=== PATIENT | female | born 1960 | race Caucasian/White ===

== ENCOUNTER → 2019-08-07 17:26 | Outpatient (CLI) | payer OTHER, SELFPAY ==
--- NOTE | ~2019-08-07 | MM_ITS ---
EXAMINATION: MM screening is[facility] BI w [place] HISTORY: Screening mammogram TECHNIQUE: Craniocaudal and mediolateral oblique 3-D tomosynthesis images were obtained and synthetic 2-D images were generated. CAD analysis was submitted and interpreted. COMPARISON: bilateral digital screening mammogram 04/05/2017 diagnostic right digital mammogram and limited right breast ultrasound 03/22/2017 bilateral digital screening mammogram BREAST PARENCHYMAL COMPOSITION: There are scattered areas of fibroglandular density. FINDINGS: Stable mild fibroglandular asymmetry. There is no evidence of suspicious mass, calcificatio n, or architectural distortion to suggest malignancy in either breast. There has been no suspicious i nterval change. IMPRESSION: 1. No mammographic evidence of malignancy. 2. Recommend routine screening mammography in one year. BI-RADS Category 2: Benign finding(s). Reviewed, dictated and finalized at location A. [employer] ASSISTANT
== END ==
PROVIDERS: Visit Provider Obstetrics & Gynecology
DX: Z12.31 Encounter for screening mammogram for malignant neoplasm of breast (principal)
CPT/HCPCS: 77063; 77067

== ENCOUNTER 2019-09-30 14:07 | Emergency (ER) | payer OTHER, SELFPAY ==
--- NOTE | ~2019-09-30 | CT_ITS ---
EXAMINATION: CT abdomen pelvis wo con DATE: 09/30/2019 15:30 INDICATION: Lower left abdominal pain for 8 hours. TECHNIQUE: Computed tomography (CT) of the abdomen and pelvis was performed without intravenous contr ast. Automated exposure control and iterative reconstruction technique were employed. Exam dose: 630 .51 mGy-cm total exam DLP. COMPARISON: 05/06/2017 CT abdomen pelvis with IV contrast material FINDINGS: The lung bases are clear of infiltrate or consolidation. Normal heart size. No pericardial or pleural effusion. The liver, gallbladder, bile ducts, spleen, pancreas, pancreatic duct, and adrenal glands are unremar kable. There is a 5 mm obstructing distal left ureteral calculus with proximal left hydroureteronephrosis, l eft perinephric stranding, mild left nephromegaly. No right renal or ureteral calculus or hydroureteronephrosis. The urinary bladder is unremarkable. Ut erus and adnexal areas are unremarkable. Normal caliber of the abdominal aorta. No intraperitoneal or retroperitoneal or pelvic mass lesion or adenopathy or ascites. There is diverticulosis of the left colon; no CT evidence of diverticulitis. No bowel obstruction or pneumatosis or intraperitoneal free air is evident. The appendix calcified, nonenlarged, without any associated inflammation. 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 No suspicious osteolytic or osteoblastic lesions are noted. IMPRESSION: 5 mm obstructing distal left renal calculus with moderate left hydroureteronephrosis, pe rinephric stranding Diverticulosis of the left colon; no CT evidence of diverticulitis Reviewed, dictated and finalized at Location [facility]. Reviewed, dictated and finalized at location A. IMPRESSION: 5 mm obstructing distal left renal calculus with moderate left hyd roureteronephrosis, perinephric stranding Diverticulosis of the left colon; no CT evidence of diverticulitis
[2019-09-30 15:02] VITALS: BP 159/84; PULSE 84; RESP 18; TEMP 37; O2SAT 100
[2019-09-30 15:28] LABS: Bilirubin Urine Negative (Negative); Blood Urine 3+ (Negative); Glucose Urine UA Negative (Negative); Ketones Urine Trace (Negative); Leukocyte Esterase Ur 2+ (Negative); Nitrate Urine Positive (Negative); Protein Urine Negative (Negative); Specific Grav Ur 1.015 (1.010-1.020); Urobilinogen Urine 0.2 mg/dL (0.2-1.0)
[2019-09-30] MEDS: SODIUM CHLORIDE 0.9% IV 1,000 ML 999 ML IV CONT (15:36)
[2019-09-30] MEDS: ONDANSETRON HCL ODT 4 MG TABLET PO (15:36)
[2019-09-30 15:45] LABS: Add Urine Microscopic? YES; Appearance Urine Cloudy (Clear); Bacteria Urine 2+ /hpf; Color Urine Light Yellow (Yellow); Squamous Epithelial Cell Urine Few /hpf (Few); WBC Urine 21-30 /hpf (0-3)
[2019-09-30 16:11] LABS: Hematocrit 42.1 % (35.0-49.0); Hemoglobin 13.9 g/dL (12.0-15.0); Mean Corpuscular Hemoglobin 29.5 pg (27.0-31.0); Mean Corpuscular Volume 89.4 fL (78.0-102.0); Mean Platelet Volume 11.3 fl (9.2-11.8); Platelet Count Result 194 K/mm3 (150-420); Red Blood Count 4.71 M/mm3 (4.20-5.40); White Blood Count 19.4 K/mm3 (4.8-10.8)
[2019-09-30 16:28] LABS: Alanine Aminotransferase 15 U/L (14-59); Albumin Level 3.6 g/dL (3.4-5.0); Alkaline Phosphatase 75 U/L (46-116); Anion Gap 15.9 mmol/L (7-16); Aspartate Amino Transferase 21 U/L (15-37); Bilirubin,Total 0.4 mg/dL (0.00-1.00); Blood Urea Nitrogen 19 mg/dL (7-18); Calcium 9.1 mg/dL (8.5-10.1); Carbon Dioxide 23 mmol/L (21-32); Chloride 104 mmol/L (98-108); Estimated CRCL calculation 45 ml/min; Estimated Glomerular Filt Rate 52; Glucose 101 mg/dL (70-99); Osmolality Calculated 290 mOsm/kg (285-295); Potassium 3.9 mmol/L (3.5-5.1); Sodium 139 mmol/L (136-145); Total Protein 7.2 g/dL (6.4-8.2)
--- NOTE | 2019-09-30 16:33 | ED.ABDPAIN ---
HPI - Abdominal Pain General Chief Complaint: Abdominal Pain Stated Complaint: left side pain Source: patient Mode of arrival: ambulatory Limitations: no limitations History of Present Illness HPI narrative: This is a 59-year-old female presents the emergency department with some left flank pain radiating into her left lower quadrant with dysuria, also hematuria. Patient has no known past medical history is currently on any medication, no history of nephrolithiasis. Currently there is no fever chills the patient does some complain of some mild nausea her pain prior to arrival was about a 7/10 currently she rates her pain about a 3/10. MD elicited complaint: abdominal pain and flank pain Pertinent past history: none Onset (ago): day(s) Pain Consistency: intermittent Location: LLQ and L flank Severity: mild Pain scale (0-10): 3 Quality: fullness and dull Radiation: LLQ Migration to: no migration Exacerbating factors: nothing Relieving factors: nothing Associated symptoms: nausea, dysuria and hematuria Treatments prior to arrival: NSAIDs Related Data Allergies Allergy/AdvReac Type Severity Reaction Status Date / Time No Known Allergies Allergy Unverified 05/06/17 11:29 Review of Systems Review of Systems: All systems reviewed & are unremarkable except as noted in HPI and below PMFSH Past Medical History Medical History Patient denies medical problems Family History Family History Father Family history of cardiovascular disease Social History Social History Smoking status: Never smoker Second hand tobacco smoke exposure: No Alcohol intake: current Exam Const: General: no acute distress and alert Orientation/consciousness: patient oriented x3 HENMT: Head: normal to inspection Eyes: Conjunctivae: conjunctivae normal Pupils: Equal, round and reactive pupils present Neck: Neck: normal visual inspection Chest: Chest palpation & inspection: normal inspection of the chest Resp: Effort & Inspection: normal respiratory effort Auscultation: clear to auscultation bilaterally Cardio: Rate: regular rate Rhythm: regular rhythm GI: GI Palp: Yes Soft to palpation and Yes Tenderness to palpation present (GI) : General: Yes CVA tenderness Urinary Catheter: Urinary Catheter: urine cloudy Back/Spine/Pelvis: Back: CVA tenderness Skin: General skin exam: normal color Rashes: no rashes Neuro: General: patient oriented x3, moves all extremities, no meningeal signs and no focal motor deficits Extrem: General: normal to inspection Psych: Mental Status: mental status grossly normal Course Vital Signs Vital signs: Vital Signs Temperature 37.0 C 09/30/19 15:02 Pulse Rate 84 09/30/19 15:02 Respiratory Rate 18 09/30/19 15:02 Blood Pressure 159/84 H 09/30/19 15:02 Pulse Oximetry 100 09/30/19 15:02 Temperature 37.0 C 09/30/19 15:02 Pulse Rate 84 09/30/19 15:02 Respiratory Rate 18 09/30/19 15:02 Blood Pressure 159/84 H 09/30/19 15:02 Pulse Oximetry 100 09/30/19 15:02 MDM - Abdominal Pain Lab Data Result diagrams: 09/30/19 15:50 09/30/19 15:50 Labs: Lab Results 09/30/19 09/30/19 09/30/19 Range/Units 15:21 15:50 15:50 WBC 19.4 H (4.8-10.8) K/mm3 RBC 4.71 (4.20-5.40) M/mm3 Hgb 13.9 (12.0-15.0) g/dL Hct 42.1 (35.0-49.0) % MCV 89.4 (78.0-102.0) fL MCH 29.5 (27.0-31.0) pg MCHC 33.0 (32.0-36.0) g/dL RDW 13.0 (11.6-14.4) % Plt Count 194 (150-420) K/mm3 MPV 11.3 (9.2-11.8) fl Sodium 139 (136-145) mmol/L Potassium 3.9 (3.5-5.1) mmol/L Chloride 104 (98-108) mmol/L Carbon Dioxide 23 (21-32) mmol/L Anion Gap 15.9 (7-16) mmol/L BUN 19 H (7-18) mg/dL Creatinine 1.08 H (0.55-1.02) mg/dL E
[2019-09-30 17:04] VITALS: BP 141/78; PULSE 80; RESP 16; O2SAT 100
== END 2019-09-30 17:04 | disposition home or self-care (01) ==
PROVIDERS: Emergency Provider Emergency Medicine
DX: N20.9 Urinary calculus, unspecified (principal); N20.1 Calculus of ureter; N39.0 Urinary tract infection, site not specified
CPT/HCPCS: 36415; 74176; 80053; 81001; 85027; 96360; 99283; 99284; A9270; J7030

== ENCOUNTER 2019-10-04 05:12 | Observation (INO) | payer OTHER, SELFPAY ==
[2019-10-04] VITALS (15 sets, daily range): BP systolic 89–134; BP diastolic 51–72; PULSE 71–98; RESP 10–16; TEMP 36.4–37.4; O2SAT 96–100; BMI 27.6
--- NOTE | ~2019-10-04 | XR_ITS ---
EXAMINATION: XR retrograde pyelo w/stent LT DATE: 10/04/2019 09:33 INDICATION: Left ureteral stone extraction and stent placement TECHNIQUE: Fluoroscopic images from a left internal ureteral stent placement are submitted for review . 57 seconds of fluoroscopy time. 36 images. FINDINGS: There is a left double-J internal ureteral stent projecting in expected position, with proximal [place] loop at the level of the renal pelvis and distal loop in the pelvis within the bladder lumen. IMPRESSION: 1. Left internal ureteral stent placement. Please refer to real-time procedural findings for detail s. Reviewed, dictated and finalized at location A. IMPRESSION: 1. Left internal ureteral stent placement. Please refer to real-time procedur al findings for details.
--- NOTE | ~2019-10-04 | XR_ITS ---
EXAMINATION: XR abdomen/kub 1V DATE: 10/04/2019 05:53 INDICATION: Left ureteral stone. TECHNIQUE: A supine view of the abdomen on 2 radiographs was obtained. COMPARISON: CT abdomen and pelvis 09/30/2019 FINDINGS: There are no dilated loops of bowel. There is a 5 mm stone at left ureterovesicular junctio n. There are phleboliths in the pelvis. IMPRESSION: 1. 5 mm stone at left ureterovesicular junction. Reviewed, dictated and finalized at location A.
--- NOTE | 2019-10-04 05:21 | ED.ABDPAIN ---
HPI - Abdominal Pain General Chief Complaint: Abdominal Pain <Juan Foley MD - Last Filed: 10/04/19 20:07> Stated Complaint: blood in urine <Juan Foley MD - Last Filed: 10/04/19 20:07> Time Seen by Provider: 10/04/19 05:17 <Juan Foley MD - Last Filed: 10/04/19 20:07> History of Present Illness HPI narrative: 59 yo female w/ h/o htn, recently diagnosed kidney stone presents c/o flank pain and hematuria. SHe was seen at [facility] on 09/29 and found to have a 5 mm stone in the distal left ureter. Additionally she was told that she had a UTI. She was started on Macrobid, flomax, and tramadol. She reports that her symptoms have not improved since that time. Her pain is moderately controlled with tramadol. She has had very little appetite. last night she noted that she began having rust colored urine. No fever. On review of the chart She had a WBC count of 19. Her urine was nitrate positive. CT showed 5 mm stone in distal left ureter and stranding around the left Kidney. This makes me concerned about the possibility of pyelonephritis behind an obstructing stone. <Juan Foley MD - Last Filed: 10/04/19 20:07> Related Data Allergies/Adverse Reactions: Allergies Allergy/AdvReac Type Severity Reaction Status Date / Time No Known Allergies Allergy Unverified 10/04/19 05:18 <Juan Foley MD - Last Filed: 10/04/19 20:07> Review of Systems Review of Systems: All systems reviewed & are unremarkable except as noted in HPI and below <Juan Foley MD - Last Filed: 10/04/19 20:07> Constitutional: Constitutional: Denies fever(s) <Juan Foley MD - Last Filed: 10/04/19 20:07> ENT: Reports dizziness <Juan Foley MD - Last Filed: 10/04/19 20:07> Cardiovascular: Cardiovascular: Denies chest pain <Juan Foley MD - Last Filed: 10/04/19 20:07> Respiratory: Respiratory: Denies dyspnea <Juan Foley MD - Last Filed: 10/04/19 20:07> Gastrointestinal: Gastrointestinal: Reports abdominal pain, Reports constipation and Reports nausea <Juan Foley MD - Last Filed: 10/04/19 20:07> Genitourinary: Genitourinary: Reports hematuria and Denies dysuria <Juan Foley MD - Last Filed: 10/04/19 20:07> PMFSH Past Medical History Medical History: Medical History HTN (hypertension) Patient denies medical problems <Juan Foley MD - Last Filed: 10/04/19 20:07> Family History Family History: Family History Father Family history of cardiovascular disease <Juan Foley MD - Last Filed: 10/04/19 20:07> Social History Social History: Social History Smoking status: Never smoker Second hand tobacco smoke exposure: No Alcohol intake: current Drinks per week: 1 Substance use: never Spiritual care concerns: No Agree to blood products: Yes <Juan Foley MD - Last Filed: 10/04/19 20:07> Exam Const: General: no acute distress and alert <Juan Foley MD - Last Filed: 10/04/19 20:07> Nutritional Appearance: well nourished <Juan Foley MD - Last Filed: 10/04/19 20:07> Orientation/consciousness: patient oriented x3 <Juan Foley MD - Last Filed: 10/04/19 20:07> HENMT: Head: normal to inspection <Juan Foley MD - Last Filed: 10/04/19 20:07> Resp: Effort & Inspection: normal respiratory effort <Juan Foley MD - Last Filed: 10/04/19 20:07> Auscultation: clear to auscultation bilaterally <Juan Foley MD - Last Filed: 10/04/19 20:07> Cardio: Rate: regular rate <Juan Foley MD - Last Filed: 10/04/19 20:07> Rhythm: regular rhythm <Juan Foley MD - Last Filed: 10/04/19 20:07> GI: GI Palp: Yes Soft to palpation and No Tenderness to palpation present (GI) <G
[2019-10-04] MEDS: SODIUM CHLORIDE 0.9% IV 1,000 ML 999 ML IV CONT (05:34)
[2019-10-04 05:36] LABS: Basophils Percent Auto 0.2 % (0.2-1.2); Eosinophils Percent Auto 0.2 % (0-4.4); Hematocrit 38.1 % (37.0-47.0); Hemoglobin 12.8 g/dL (12.0-15.0); Immature Granulocyte Absolute 0.13 K/mm3 (0.00-0.031); Immature Granulocyte Percent A 0.7 % (0-0.5); Immature Platelet Fraction Pct 7.4 % (0.9-11.2); Lymphocytes Absolute Auto 0.72 K/mm3 (0.9-3.2); Lymphocytes Percent Auto 3.9 % (18.3-44.2); Mean Corpuscular HGB Conc 33.6 g/dl (32-36); Mean Corpuscular Hemoglobin 29.2 pg (26-34); Mean Platelet Volume 11.5 fl (7.4-10.4); Monocytes Absolute Auto 1.8 K/mm3 (0.1-0.6); Neutrophils Absolute Auto 15.6 K/mm3 (1.3-6.7); Platelet Count Result 104 k/mm3 (150-375); Red Blood Count 4.38 M/mm3 (4.2-5.4); Red Cell Distribution Width 13.5 % (11.5-14.5); White Blood Count 18.3 K/mm3 (4.5-10.0)
[2019-10-04 05:42] LABS: Alanine Aminotransferase 14 U/L (4-35); Albumin Level 3.4 g/dL (3.5-5.1); Alkaline Phosphatase 135 U/L (38-126); Aspartate Amino Transferase 19 U/L (14-36); Bilirubin,Total 0.6 mg/dL (0.2-1.3); Blood Urea Nitrogen 15 mg/dL (7-17); Calcium 8.7 mg/dL (8.4-10.2); Carbon Dioxide 25 mmol/L (22-30); Chloride 97 mmol/L (98-107); Estimated Glomerular Filt Rate 50; Glucose 125 mg/dL (65-105); Potassium 3.2 mmol/L (3.4-5.0); Sodium 132 mmol/L (137-145)
[2019-10-04 05:46] LABS: Prothrombin Time 12.8 Seconds (11.1-14.7)
[2019-10-04 05:47] LABS: Partial Thromboplastin Time 29.4 SECONDS (22.3-36.8)
[2019-10-04 05:55] LABS: Add Urine Microscopic? YES; Appearance Urine Turbid (Clear); Bacteria Urine Trace /hpf; Bilirubin Urine Negative (Negative); Blood Urine 3+ (Negative); Color Urine Amber (Yellow); Glucose Urine UA Negative (Negative); Ketones Urine 1+ mg/dL (Negative); Leukocyte Esterase Ur 3+ LEU/UL (Negative); Nitrate Urine Negative (Negative); Protein Urine 2+ mg/dL (Negative); RBC Urine >75 /hpf (0-2); Specific Grav Ur 1.011 (1.001-1.035); Squamous Epithelial Cell Urine Few /hpf (Few); Urobilinogen Urine Negative mg/dL (<2.0); WBC Clumps Urine Present /HPF; WBC Urine >75 /hpf
[2019-10-04 06:58] LABS: Lactic Acid Reflex 1.1 mmol/L (0.7-2.1)
--- NOTE | 2019-10-04 08:18 | ECG_ITS ---
Measurements Intervals [place] Rate: 82 P: 67 MT: 165 QRS: 37 QRSD: 90 T: 40 QT: 364 QTc: 427 Interpretive Statements SINUS RHYTHM VENTRICULAR PREMATURE COMPLEX BASELINE ARTIFACT- V2 BORDERLINE ECG Electronically Signed On 10-04-2019 8:41:45 CDT by Polo Mansfield D.O.
--- NOTE | 2019-10-04 08:21 | WPDANESEPPF ---
Anes - Initial Pre Proc Eval Procedure: Operation Date: 10/04/19 09:00 Proposed Procedures p Cystoscopy, Left Ureteroscopy, Stone Extraction, Possible Left Ureteral Stent Placement(Left) - Garland Loja MD Date/Time: 10/04/19 08:21 Surgeon: Riki Jason MD Pre Op Diagnosis: sepsis,uti,left kidney stone Patient Data Age: 59 Gender: F Height: Weight: 77.7 kg Last Vital Signs Temp 37.4 C 10/04/19 06:31 Pulse 97 10/04/19 07:37 Resp 16 10/04/19 07:37 BP 130/66 10/04/19 07:37 Pulse Ox 98 10/04/19 07:37 Allergies Allergy/AdvReac Type Severity Reaction Status Date / Time No Known Allergies Allergy Unverified 10/04/19 05:18 Home Medications Medication Instructions Recorded Confirmed Type amlodipine [Norvasc] 5 mg PO DAILY #7 tablet 09/30/19 Rx nitrofurantoin monohyd/m-cryst 100 mg PO Q12H 7 Days #14 cap 09/30/19 Rx [Macrobid] tamsulosin [Flomax] 0.4 mg PO DAILY #7 cap 09/30/19 Rx tramadol [Ultram] 50 mg PO Q6H PRN #20 tablet 09/30/19 Rx Laboratory Tests 10/04/19 10/04/19 10/04/19 05:25 05:25 05:25 WBC 18.3 K/mm3 H K/mm3 (4.5-10.0) RBC 4.38 M/mm3 M/mm3 (4.2-5.4) Hgb 12.8 g/dL g/dL (12.0-15.0) Hct 38.1 % % (37.0-47.0) MCV 87.0 fl fl (80-100) MCH 29.2 pg pg (26-34) MCHC 33.6 g/dl g/dl (32-36) RDW 13.5 % % (11.5-14.5) Plt Count 104 k/mm3 L k/mm3 (150-375) MPV 11.5 fl H fl (7.4-10.4) Immature Gran % (Auto) 0.7 % H % (0-0.5) Neut % (Auto) 85.0 % H % (45.5-73.1) Lymph % (Auto) 3.9 % L % (18.3-44.2) [place] % (Auto) 10.0 % H % (2.6-8.5) Eos % (Auto) 0.2 % % (0-4.4) Baso % (Auto) 0.2 % % (0.2-1.2) Lymph # (Auto) 0.72 K/mm3 L K/mm3 (0.9-3.2) [place] # (Auto) 1.8 K/mm3 H K/mm3 (0.1-0.6) Eos # (Auto) 0.0 K/mm3 K/mm3 (0-0.3) Baso # (Auto) 0.0 K/mm3 K/mm3 (0.0-0.1) Abs Immat Gran (auto) 0.13 K/mm3 H K/mm3 (0.00-0.031) Absolute Neuts (auto) 15.6 K/mm3 H K/mm3 (1.3-6.7) Absolute Nucleated RBC 0.0 K/mm3 K/mm3 (0.0-0.012) Nucleated RBC % 0.0 % % (0.0-0.2) % Immature Plt Fraction 7.4 % % (0.9-11.2) PT 12.8 Seconds Seconds (11.1-14.7) INR 1.0 APTT 29.4 SECONDS SECONDS (22.3-36.8) Sodium 132 mmol/L L mmol/L (137-145) Potassium 3.2 mmol/L L mmol/L (3.4-5.0) Chloride 97 mmol/L L mmol/L (98-107) Carbon Dioxide 25 mmol/L mmol/L (22-30) BUN 15 mg/dL mg/dL (7-17) Creatinine 1.10 mg/dL H mg/dL (0.7-1.0) Estim Creat Clear Calc Not Reportable Estimated GFR 50 L (59 - ) Glucose 125 mg/dL H mg/dL (65-105) Lactic Acid Calcium 8.7 mg/dL mg/dL (8.4-10.2) Total Bilirubin 0.6 mg/dL mg/dL (0.2-1.3) AST 19 U/L U/L (14-36) ALT 14 U/L U/L (4-35) Alkaline Phosphatase 135 U/L H U/L (38-126) Total Protein 7.0 g/dL g/dL (6.3-8.2) Albumin 3.4 g/dL L g/dL (3.5-5.1) Urine Color Urine Appearance Urine pH Ur Specific [place] Urine Protein Urine Glucose (UA) Urine Ketones Ur Blood (Man) Urine Nitrate Urine Bilirubin Urine Urobilinogen Leukocyte Esterase Rfl Urine RBC Urine WBC Urine WBC Clumps Ur Squamous Epith Cells Urine Bacteria 10/04/19 10/04/19 05:36 06:27 WBC RBC Hgb Hct MCV MCH MCHC RDW Plt Count MPV Immature Gran % (Auto) Neut % (Auto) Lymph % (Auto)
--- NOTE | 2019-10-04 08:23 | WPDURCON ---
Assessment and Plan Assessment and plan (1) Left ureteral stone: Code(s): N20.1 - Calculus of ureter Status: Acute (2) Obstructive pyelonephritis: Code(s): N11.1 - Chronic obstructive pyelonephritis Status: Acute Assessment and Plan: Cysto/left ureteroscopy with stone extraction and stent placement. Admit for IV Ceftriaxone pending cultures. Urology Consult Note HPI Date Seen: 10/04/19 Requesting Physician: Riki Jason MD Primary Care Provider: UNKNOWN,DOCTOR Consult Narrative Narrative: Osmel Mullins is a 59 year old female withou prior history of known urolithiasis until last Tuesday when presented to ER in [place] with 5mm left proximal ureteral stone and UTI. Was discharge on Nitrofurantion. Now presents with ongoing flank pain without fever but persistent pyuria. She denies gross hematuria. Review of Systems Constitutional: Constitutional: Denies chills, Denies fatigue, Denies fever(s) and Denies headache(s) Eyes: Eyes: Denies blurry vision ENT: Denies vertigo, Denies dizziness, Denies headache(s) and Denies sore throat Cardiovascular: Cardiovascular: Denies chest pain, Denies syncope, Denies lightheadedness, Denies palpitations, Denies dyspnea and Denies dyspnea on exertion Respiratory: Respiratory: Denies hemoptysis, Denies dyspnea and Denies dyspnea on exertion Gastrointestinal: Gastrointestinal: Reports abdominal pain, Denies melena, Denies bloating, Denies hematochezia, Denies change in bowel habits, Denies change in stool character, Denies constipation, Denies diarrhea and Denies vomiting Genitourinary: Genitourinary: Denies hematuria, Denies urinary frequency, Denies dysuria, Denies urinary hesitancy and Denies urinary urgency Integumentary/Breasts: Skin/Breast: Denies pruritus, Denies lesions and Denies rash Neurologic: Denies confusion, Denies vertigo, Denies dizziness, Denies syncope and Denies headache(s) Psychiatric: Psychiatric: Denies anxiety, Denies change in appetite and Denies confusion Endocrine: Endocrine: Denies fatigue and Denies palpitations PMFSH Past Medical History Medical History HTN (hypertension) Patient denies medical problems Family History Family History Father Family history of cardiovascular disease Social History Social History Smoking status: Never smoker Second hand tobacco smoke exposure: No Alcohol intake: current Meds Home Medications and Allergies Home Medications Medication Instructions Recorded Confirmed Type amlodipine [Norvasc] 5 mg PO DAILY #7 tablet 09/30/19 10/04/19 Rx nitrofurantoin monohyd/m-cryst 100 mg PO Q12H 7 Days #14 cap 09/30/19 10/04/19 Rx [Macrobid] tamsulosin [Flomax] 0.4 mg PO DAILY #7 cap 09/30/19 10/04/19 Rx tramadol [Ultram] 50 mg PO Q6H PRN #20 tablet 09/30/19 10/04/19 Rx Allergies Allergy/AdvReac Type Severity Reaction Status Date / Time No Known Allergies Allergy Unverified 10/04/19 05:18 Vital Signs Vital Signs - 24 hr 10/04/19 05:14 10/04/19 06:13 10/04/19 06:31 Temperature 98.8 F 99.4 F Pulse Rate 97 98 Respiratory Rate 15 15 Blood Pressure 134/72 125/64 Pulse Oximetry 100 99 10/04/19 07:37 Temperature Pulse Rate 97 Respiratory Rate 16 Blood Pressure 130/66 Pulse Oximetry 98 Exam Const: General: healthy appearing, comfortable, no acute distress and well developed; No confusion Nutritional Appearance: well nourished Orientation/consciousness: patient oriented x3 and No confusion HENMT: Head: normocephalic and atraumatic Ears: external ears normal Face and sinus: normal facial exam Mouth: Yes lip normal Teeth and gingiva: dentition normal Eyes: General: appearance normal, both eyes and all related structures Alignment and Position: alignment normal Eyelids
[2019-10-04] MEDS: LACTATED RINGERS 1,000 ML 30 ML IV CONT (08:39)
[2019-10-04] MEDS: KETOROLAC 30 MG/ML VIAL (*BKC) IM (09:29)
--- NOTE | 2019-10-04 09:32 | SUR.OPER ---
EBL:0cc
--- NOTE | 2019-10-04 09:33 | P.OP_ITS ---
Procedure Note - Detailed Date of procedure: 10/04/19 Pre-op diagnosis: sepsis,uti,left kidney stone Post-op diagnosis: same Procedure performed: 1. Cystoscopy, left retrograde pyelogram. 2. Left ureteroscopy with extraction stone/clot. 3. Left ureteral stent placement. Description of procedure: The patient was brought to the operative suite where she is prepped and draped in a routine sterile fashion while in the dorsal lithotomy position after the uneventful induction of a general LMA anesthetic. A 19F rigid cystoscope was placed in the bladder. The patient had no evidence of urethral stricture or bladder neck contracture. The bladder mucosa was endoscopically normal without hyperemia or neoplasm. There was a single, orthotopic ureteral orifice bilaterally. A 0.035 glidewire was advanced into the left renal pelvis under fluoroscopy. The distal ureter was dilated with an 8F/10F ureteral dilator. Ureteroscopy was undertaken with a short tapered semi- rigid ureteroscope. With ureteroscopy I saw marked left distal ureteral edema and a clot with possible small stone fragments in it - was able to extract the clot/stone using a 1.9F Escape, disposable stone basket. I then did a retrograde pyelogram on the left followed by the left flexible ureteroscopy to ensure that there were no additional, more proximal stones. There was no identifiable additional stones or other pathology.Due to the extent of this ma nipulation I did place a 4.8F double-J ureteral stent. The proximal coil of the stent was confirmed to be in the renal pelvis and the distal coil in the bladder. The patient's bladder was emptied and she was taken to the recovery room having tolerated this procedur. Anesthesia: GLMA Surgeon: Garland Loja MD Estimated blood loss (mL): 0 Drains: Yes (4.8F left ureteral stent) Packing: No Pathology: yes Complications: No immediate complications Condition: stable Disposition: PACU
--- NOTE | 2019-10-04 10:28 | SUR.PHASEI ---
1015 AT BEDSIDE TO SEE PT/UPDATE GIVEN ON ADMISSION 1028 SBAR FAXED FLOOR NOTIFIED
--- NOTE | 2019-10-04 10:45 | ADMGEN ---
This patient, Osmel Mullins, was admitted to 3 Medical Room 348-01. Patient arrived to unit per stretcher from OR. Report received from YESI Maddox. Patient/family oriented to hospital policies and general routines including ID bracelet, bed and alarms, visiting hours, pain management, procedures, bathroom and other care routines, personal items, smoking policy, room service/diet, and visiting hours. Valuables list has been completed. Information on how to activate the Rapid Response Team has been discussed. Patient/Family are encouraged to report perceived risks to care and to ask questions if they do not understand what they are told or what they should do.
[2019-10-04] MEDS: SODIUM CHLORIDE 0.9% IV 1,000 ML 125 ML IV CONT ×2 (12:08→19:36)
--- NOTE | 2019-10-04 16:28 | PM.IMHP ---
H&P: HPI History of Present Illness Chief complaint: sepsis,uti,left kidney stone Narrative: Osmel Mullins is a 59 year old female with past medical history of hypertension seen initially presented at [facility] was found to about 5 mm kidney stone and UTI patient was started on oral Macrobid, Flomax and tramadol and discharged however patient presented with a worsening symptoms and repeat CT abdomen showed 5 mm stone in distal ureter patient was seen by urologist and was taken to the urology lab and cystoscopy and removal of the stone, patient started on Rocephin for antibiotic, patient states is feeling much better after the procedure denies any abdominal pain nausea or vomiting fever or chills. Review of Systems Review of Systems: All systems reviewed & are unremarkable except as noted in HPI and below PMFSH Past Medical History Medical History HTN (hypertension) Patient denies medical problems Family History Family History Father Family history of cardiovascular disease Social History Social History Smoking status: Never smoker Second hand tobacco smoke exposure: No Alcohol intake: current Drinks per week: 1 Substance use: never Spiritual care concerns: No Agree to blood products: Yes Meds Home Medications and Allergies Home Medications Medication Instructions Recorded Confirmed Type amlodipine [Norvasc] 5 mg PO DAILY #7 tablet 09/30/19 10/04/19 Rx nitrofurantoin monohyd/m-cryst 100 mg PO Q12H 7 Days #14 cap 09/30/19 10/04/19 Rx [Macrobid] tamsulosin [Flomax] 0.4 mg PO DAILY #7 cap 09/30/19 10/04/19 Rx tramadol [Ultram] 50 mg PO Q6H PRN #20 tablet 09/30/19 10/04/19 Rx Allergies Allergy/AdvReac Type Severity Reaction Status Date / Time No Known Allergies Allergy Unverified 10/04/19 05:18 Vital Signs Vital Signs - 24 hr 10/04/19 05:14 10/04/19 06:13 10/04/19 06:31 Temperature 98.8 F 99.4 F Pulse Rate 97 98 Respiratory Rate 15 15 Blood Pressure 134/72 125/64 Pulse Oximetry 100 99 10/04/19 07:37 10/04/19 08:30 10/04/19 09:40 Temperature 98.1 F 97.6 F Pulse Rate 97 83 87 Respiratory Rate 16 14 12 Blood Pressure 130/66 113/63 89/57 L Pulse Oximetry 98 99 97 10/04/19 09:55 10/04/19 10:10 10/04/19 10:24 Temperature Pulse Rate 85 88 78 Respiratory Rate 12 10 L 12 Blood Pressure 99/55 L 106/60 109/62 Pulse Oximetry 99 96 96 10/04/19 11:15 10/04/19 12:00 10/04/19 13:01 Temperature 98 F 98.3 F 98.5 F Pulse Rate 72 87 86 Respiratory Rate 14 14 16 Blood Pressure 116/53 L 110/64 112/66 Pulse Oximetry 100 100 97 10/04/19 14:24 Temperature 97.8 F Pulse Rate 71 Respiratory Rate 12 Blood Pressure 103/61 Pulse Oximetry 97 Exam Const: General: comfortable and no acute distress HENMT: General nose exam: Normal nares present Mouth: Yes moist mucous membranes Eyes: Sclera: sclerae normal Neck: Neck: supple Resp: Effort & Inspection: normal respiratory effort Auscultation: clear to auscultation bilaterally Cardio: Rate: regular rate Rhythm: regular rhythm GI: GI Palp: Yes Soft to palpation Other: Diffusely tender Skin: General skin exam: normal color Neuro: Speech: normal speech Sensory Exam: normal sensation Extrem: General: normal to inspection Psych: Affect: Anxious affect present H&P: Results Labs Labs: Short CBC 10/04/19 Range/Units 05:25 WBC 18.3 H (4.5-10.0) K/mm3 Hgb 12.8 (12.0-15.0) g/dL Hct 38.1 (37.0-47.0) % Plt Count 104 L (150-375) k/mm3 BMP 10/04/19 05:25 Sodium 132 L Potassium 3.2 L Chloride 97 L Carbon Dioxide 25 BUN 15 Creatinine 1.10 H Glucose 125 H Calcium 8.7 Liver Function 10/04/19 Range/Units 05:25 Total Bilirubin 0.6 (0.2-1.3) mg/dL AST 19 (14-36) U/L ALT 14 (4
[2019-10-05] VITALS (7 sets, daily range): BP systolic 117–139; BP diastolic 56–67; PULSE 63–84; RESP 14–18; TEMP 36.3–37.6; O2SAT 99–100
[2019-10-05] MEDS: SODIUM CHLORIDE 0.9% IV 1,000 ML 125 ML IV CONT (03:39)
[2019-10-05 05:13] LABS: Basophils Absolute Auto 0.1 K/mm3 (0.0-0.1); Basophils Percent Auto 0.3 % (0.2-1.2); Hematocrit 34.7 % (37.0-47.0); Hemoglobin 11.4 g/dL (12.0-15.0); Immature Granulocyte Absolute 0.49 K/mm3 (0.00-0.031); Immature Granulocyte Percent A 2.6 % (0-0.5); Lymphocytes Absolute Auto 0.73 K/mm3 (0.9-3.2); Lymphocytes Percent Auto 3.9 % (18.3-44.2); Mean Corpuscular HGB Conc 32.9 g/dl (32-36); Mean Corpuscular Hemoglobin 28.7 pg (26-34); Mean Corpuscular Volume 87.4 fl (80-100); Mean Platelet Volume 11.8 fl (7.4-10.4); Monocytes Absolute Auto 1.8 K/mm3 (0.1-0.6); Monocytes Percent Auto 9.5 % (2.6-8.5); Neutrophils Absolute Auto 15.5 K/mm3 (1.3-6.7); Neutrophils Percent Auto 83.7 % (45.5-73.1); Platelet Count Result 114 k/mm3 (150-375); Red Blood Count 3.97 M/mm3 (4.2-5.4); White Blood Count 18.5 K/mm3 (4.5-10.0)
[2019-10-05 05:33] LABS: Alanine Aminotransferase 50 U/L (4-35); Albumin Level 2.9 g/dL (3.5-5.1); Alkaline Phosphatase 227 U/L (38-126); Aspartate Amino Transferase 59 U/L (14-36); Bilirubin,Total 0.4 mg/dL (0.2-1.3); Blood Urea Nitrogen 13 mg/dL (7-17); Calcium 8.2 mg/dL (8.4-10.2); Carbon Dioxide 26 mmol/L (22-30); Chloride 108 mmol/L (98-107); Estimated CRCL calculation 61 ml/min; Estimated Glomerular Filt Rate > 60; Glucose 139 mg/dL (65-105); Potassium 4.1 mmol/L (3.4-5.0); Sodium 137 mmol/L (137-145)
--- NOTE | 2019-10-05 07:52 | WPDUROPN2 ---
Progress Note: A&P Assessment and Plan (1) Obstructive pyelonephritis: Code(s): N11.1 - Chronic obstructive pyelonephritis Status: Acute (2) Left ureteral stone: Code(s): N20.1 - Calculus of ureter Status: Acute Assessment and Plan: Although this patient continues to have a significant leukocytosis, the fact that she is afebrile and comfortable is encouraging. With an indwelling stent she is protected from significant regression in her urinary tract symptoms. under ordinary circumstances I would encourage her to stay another day or 2 until her leukocytosis his more completely resolved. During the current environment, however, I would be comfortable with her going home on oral quinolone with the understanding that she needs to contact us were she to developed fever. Subjective Subjective Date/Time Seen: 10/05/19 07:52 Comfortable, tolerating stent. Review of Systems Cardiovascular: Cardiovascular: Denies chest pain, Denies lightheadedness, Denies palpitations and Denies dyspnea Respiratory: Respiratory: Denies dyspnea Gastrointestinal: Gastrointestinal: Denies diarrhea, Denies nausea and Denies vomiting Genitourinary: Genitourinary: Denies hematuria and Denies dysuria Endocrine: Endocrine: Denies palpitations Exam Const: General: no acute distress Resp: Effort & Inspection: normal respiratory effort GI: Inspection: non-distended GI Palp: No abdominal tenderness and No Guarding due to palpation present (GI) Auscultation: normal bowel sounds Objective Data Vital Signs Vital Signs: Vital Signs - 24 hr 10/04/19 08:30 10/04/19 09:40 10/04/19 09:55 Temperature 98.1 F 97.6 F Pulse Rate 83 87 85 Respiratory Rate 14 12 12 Blood Pressure 113/63 89/57 L 99/55 L Pulse Oximetry 99 97 99 10/04/19 10:10 10/04/19 10:24 10/04/19 11:15 Temperature 98 F Pulse Rate 88 78 72 Respiratory Rate 10 L 12 14 Blood Pressure 106/60 109/62 116/53 L Pulse Oximetry 96 96 100 10/04/19 12:00 10/04/19 13:01 10/04/19 14:24 Temperature 98.3 F 98.5 F 97.8 F Pulse Rate 87 86 71 Respiratory Rate 14 16 12 Blood Pressure 110/64 112/66 103/61 Pulse Oximetry 100 97 97 10/04/19 17:59 04/30/20 20:40 10/05/19 00:38 Temperature 98.3 F 99.4 F 98.9 F Pulse Rate 72 76 63 Respiratory Rate 12 16 16 Blood Pressure 107/51 L 117/57 L 123/64 Pulse Oximetry 97 98 99 10/05/19 04:18 Temperature 98.3 F Pulse Rate 68 Respiratory Rate 14 Blood Pressure 128/67 Pulse Oximetry 99 Intake/Output Intake/Output: Intake & Output 10/02/19 10/03/19 10/04/19 10/05/19 23:59 23:59 23:59 23:59 Intake Total 3530 1950 Output Total 850 1300 Balance 2680 650 Meds/Results Medications: Active Medications Generic Name Dose Route Start Last Admin Trade Name Freq PRN Reason Stop Dose Admin Fentanyl Citrate 25 mcg 10/04/19 08:23 Sublimaze IV PUSH Q2M PRN Pain Sodium Chloride 1,000 mls @ 125 mls/hr 10/04/19 07:15 10/05/19 03:39 Normal Saline Iv IV CONT 125 mls/hr .Q8H JESUS ALBERTO Administration Ceftriaxone Sodium/Dextrose 1 gm in 50 mls @ 100 mls/hr 10/05/19 06:00 10/05/19 06:45 Rocephin 1 Gm/D5w 50 Ml IVPB Infused Q24H JESUS ALBERTO Infusion Morphine Sulfate 4 mg 10/04/19 07:15 Morphine Sulfate Inj IV PUSH Q4HR PRN Pain Rated 7-10 Ondansetron HCl 4 mg 10/04/19 07:15 Zofran Inj IV PUSH Q4H PRN Nausea Ondansetron HCl 4 mg 10/04/19 08:23 Zofran Inj IV PUSH ONCE PRN Nausea Oxycodone HCl 5 mg 10/04/19 08:23 Roxicodone Ir Tablet PO ONCE PRN Pain Radiology Results: ITS Impressions Abdomen X-Ray 10/04/19 07:01 IMPRESSION: 1. 5 mm stone at left ureterovesicular junction. Retrograde Pyelogram 10/04/19 15:05 IMPRESSION: 1. Left internal ureteral stent placement. Please refer to real-time procedural findings for details. Labs Labs: Laboratory Results - last 24 hr
[2019-10-05 10:04] LABS: Basophils Absolute Auto 0.1 K/mm3 (0.0-0.1); Basophils Percent Auto 0.5 % (0.2-1.2); Hematocrit 36.4 % (37.0-47.0); Immature Granulocyte Absolute 0.83 K/mm3 (0.00-0.031); Immature Granulocyte Percent A 4.1 % (0-0.5); Immature Platelet Fraction Pct 5.6 % (0.9-11.2); Lymphocytes Absolute Auto 0.95 K/mm3 (0.9-3.2); Lymphocytes Percent Auto 4.7 % (18.3-44.2); Mean Corpuscular Hemoglobin 29.3 pg (26-34); Mean Corpuscular Volume 88.8 fl (80-100); Mean Platelet Volume 11.8 fl (7.4-10.4); Monocytes Absolute Auto 1.4 K/mm3 (0.1-0.6); Monocytes Percent Auto 6.9 % (2.6-8.5); Neutrophils Absolute Auto 16.7 K/mm3 (1.3-6.7); Neutrophils Percent Auto 83.8 % (45.5-73.1); Platelet Count Result 138 k/mm3 (150-375); Red Cell Distribution Width 14.3 % (11.5-14.5)
[2019-10-05 10:13] LABS: Blood Urea Nitrogen 13 mg/dL (7-17); Calcium 8.2 mg/dL (8.4-10.2); Carbon Dioxide 26 mmol/L (22-30); Chloride 108 mmol/L (98-107); Estimated CRCL calculation 61 ml/min; Estimated Glomerular Filt Rate > 60; Glucose 160 mg/dL (65-105); Potassium 3.6 mmol/L (3.4-5.0); Sodium 137 mmol/L (137-145)
--- NOTE | 2019-10-05 11:11 | PM.DS ---
DS: Diagnosis Admitting Diagnosis Admitting Diagnosis: Calculus of ureter Discharge Diagnosis (1) Left ureteral stone: Code(s): N20.1 - Calculus of ureter Status: Acute (2) Obstructive pyelonephritis: Code(s): N11.1 - Chronic obstructive pyelonephritis Status: Acute (3) Acute UTI: Code(s): N39.0 - Urinary tract infection, site not specified Status: Acute (4) Thrombocytopenia: Code(s): D69.6 - Thrombocytopenia, unspecified Status: Acute Assessment and Plan: Most likely related to infection will continue to monitor. (5) HTN (hypertension): Code(s): I10 - Essential (primary) hypertension Status: Acute (6) Constipation: Code(s): K59.00 - Constipation, unspecified Status: Acute (7) Elevated LFTs: Code(s): R79.89 - Other specified abnormal findings of blood chemistry Status: Acute DS: Summary Hospital Course Reason for hospitalization: Osmel Mullins is a 59 year old female with past medical history of hypertension seen initially presented to [place] [facility] 09/30/2019 was found to about 5 mm kidney stone and UTI patient was started on oral Macrobid, Flomax and tramadol and discharged however patient presented with a worsening symptoms and came back to the ER 10/04/2019. Repeat CT abdomen showed 5 mm stone in distal ureter and the patient was admitted and seen by urologist and had a cystoscopy, left retrograde pyelogram, left ureteroscopy with extraction of stone and placement of left ureteral stent placement. The patient was admitted into the hospital overnight on IV Rocephin for antibiotic. Today the patients pain is resolved, no fevers, chills, urinary symptoms. Dr. Loja evaluated the patient today after her procedure yesterday and feels she is stable for discharge to follow up in the office and to call the office if she has worsening symptoms, fever or other issues. The patient still has leukocytosis which was stable from arrival. Her Urine Culture showed growth of E. coli. Dr. Loja recommended a Quinalone antibiotic upon discharge. She is feeling well, appears stable, vitals are normal since procedure. She can be discharged home on Levaquin for 7 days. Follow up with [facility]. Blood cultures show no growth at this time x2. Will monitor final results. She also had slight elevation to LFTs, which improved slightly today. She denies any abdominal pain, nausea with eating or RUQ pain. Will repeat CMP in 1 week and have her follow up with her primary care provider. She also had thrombopenia which resolved today. Leukocytosis improving with antibiotics. She had a bowel movement last night. Told to continue PRN MiraLax or Colace at home. The patient understands and agrees with the plan. All questions answered. Status at Discharge Cognitive/behavioral status at discharge: Stable, improved. Time Spent with Patient Time attestation: Total time spent providing and/or coordinating discharge services: Time spent: Greater than 30 minutes Exam Narrative: Exam Narrative: General: 59-year-old woman laying flat in bed watching TV. Appears comfortable. In no acute distress. Skin: No jaundice or cyanosis. Good skin turgor. Neck: Full range of motion. Supple. Respiratory: Lungs are clear to auscultation bilaterally. No wheezing, rales or rhonchi. No bony chest wall tenderness. Cardiovascular: The heart has a regular rate and rhythm without murmur. Lower extremities: No lower extremity edema. Distal pulses are easily palpated. No calf tenderness to palpation. Gastrointestinal: The abdomen is soft, nontender and nondistended with active bowel sounds. No CVA tenderness. Psychiatric: Lucid and oriented. Memory intact. Neurologic: No focal deficits. Speech is clear. No facial drooping. DS: Data Data Completed and Pending Completed studies during hospitalization: Pending at discharge 09/06
[2019-10-05] MEDS: DOCUSATE SODIUM 100 MG CAPSULE PO ×2 (11:21→22:11)
[2019-10-05] MEDS: polyethylene glycoL 3350 17 GM POWD.PACK PO (11:21)
--- NOTE | 2019-10-05 11:52 | PM.IMPN ---
Progress Note: A&P Assessment and Plan (1) Sepsis: Code(s): A41.9 - Sepsis, unspecified organism Status: Acute Assessment and Plan: She met criteria for sepsis on arrival with hypotension, leukocytosis, in the setting of a urinary tract infection most likely secondary to left renal stone. Patient's vital signs otherwise been normal since admission. Leukocytosis is still elevated we are still monitoring her. Continue IV antibiotics. (2) Leukocytosis: Code(s): D72.829 - Elevated white blood cell count, unspecified Status: Acute Assessment and Plan: Patient's leukocytosis on arrival was 18,000. This morning was again 18,000 in then labs were checked again at 9:30 a.m. which showed leukocytosis at 20,000. Her neutrophil count went from 85% down to 83%. Her vitals are otherwise stable and remains afebrile, non tachycardic. Blood cultures are still pending and will not be available until later this evening. Urine culture showed growth of E coli, pending sensitivities. Due to the patient's leukocytosis I would like to keep her again overnight for further monitoring, IV antibiotics and if blood cultures show no growth and we have the sensitivities of the urine culture I would feel comfortable with her discharge at that time. (3) Acute UTI: Code(s): N39.0 - Urinary tract infection, site not specified Status: Acute Assessment and Plan: Urine culture growing E coli. She is on IV ceftriaxone but it was recommended by Urology to place her on a quinolone. I will start IV Levaquin at this time and pending sensitivity results tomorrow. (4) Left ureteral stone: Code(s): N20.1 - Calculus of ureter Status: Acute Assessment and Plan: Patient with a 5 mm left kidney stone since 09/28 She was discharged from [facility] on oral medications without any improvement of her symptoms. She was taken to the OR by Dr. Loja and had a cysto, stone extraction, stent placement. Today she is feeling much better without any pain, fevers, chills or concerns. Continue monitoring symptoms. (5) Obstructive pyelonephritis: Code(s): N11.1 - Chronic obstructive pyelonephritis Status: Acute Assessment and Plan: Patient is urinating without any issues. Obstruction has resolved with stone extraction. (6) Thrombocytopenia: Code(s): D69.6 - Thrombocytopenia, unspecified Status: Acute Assessment and Plan: Most likely related to infection will continue to monitor. Will recheck her level in the morning. (7) HTN (hypertension): Code(s): I10 - Essential (primary) hypertension Status: Acute Assessment and Plan: Blood pressure has remained normal. (8) Constipation: Code(s): K59.00 - Constipation, unspecified Status: Acute Assessment and Plan: She will be given MiraLax and Colace to see if there is any improvement. Continue monitoring (9) Elevated LFTs: Code(s): R79.89 - Other specified abnormal findings of blood chemistry Status: Acute Assessment and Plan: Slight elevation to her LFTs today. She denies any right upper quadrant pain, nausea, pain with eating. Will continue monitoring LFTs in the morning. Time Spent With Patient Time with patient: 25 - 35 minutes Subjective Date/time seen: 10/05/19 11:52 Interval history: Date of service 10/05/2019: Patient is feeling much better after her procedure yesterday to remove her kidney stone. She denies any flank pain. She does have some left
[2019-10-05] MEDS: MORPHINE SULFATE 4 MG/ML INJ IV PUSH (22:10)
[2019-10-06 05:27] VITALS: BP 151/66; PULSE 75; RESP 16; TEMP 36.9; O2SAT 100
--- NOTE | 2019-10-06 05:36 | PC.NURSE ---
BM was small
[2019-10-06 09:23] LABS: Basophils Absolute Auto 0.1 K/mm3 (0.0-0.1); Basophils Percent Auto 0.7 % (0.2-1.2); Eosinophils Percent Auto 0.2 % (0-4.4); Hematocrit 36.4 % (37.0-47.0); Immature Granulocyte Absolute 1.12 K/mm3 (0.00-0.031); Immature Granulocyte Percent A 7.8 % (0-0.5); Lymphocytes Absolute Auto 1.53 K/mm3 (0.9-3.2); Lymphocytes Percent Auto 10.7 % (18.3-44.2); Mean Corpuscular Volume 87.9 fl (80-100); Mean Platelet Volume 10.6 fl (7.4-10.4); Monocytes Absolute Auto 1.2 K/mm3 (0.1-0.6); Monocytes Percent Auto 8.5 % (2.6-8.5); Neutrophils Absolute Auto 10.3 K/mm3 (1.3-6.7); Neutrophils Percent Auto 72.1 % (45.5-73.1); Platelet Count Result 172 k/mm3 (150-375); Red Blood Count 4.14 M/mm3 (4.2-5.4); Red Cell Distribution Width 14.4 % (11.5-14.5); White Blood Count 14.3 K/mm3 (4.5-10.0)
[2019-10-06 09:34] LABS: Alanine Aminotransferase 51 U/L (4-35); Albumin Level 3.1 g/dL (3.5-5.1); Alkaline Phosphatase 203 U/L (38-126); Aspartate Amino Transferase 38 U/L (14-36); Bilirubin,Total 0.6 mg/dL (0.2-1.3); Blood Urea Nitrogen 11 mg/dL (7-17); Calcium 8.4 mg/dL (8.4-10.2); Carbon Dioxide 25 mmol/L (22-30); Chloride 106 mmol/L (98-107); Estimated CRCL calculation 61 ml/min; Estimated Glomerular Filt Rate > 60; Glucose 133 mg/dL (65-105); Magnesium 1.8 mg/dL (1.6-2.3); Potassium 3.2 mmol/L (3.4-5.0); Sodium 140 mmol/L (137-145)
[2019-10-06] MEDS: POTASSIUM CHLORIDE 20 MEQ TABLET 40 MEQ PO (10:19)
--- NOTE | 2019-10-12 08:47 | PC.NURSE ---
Blood cx are negative.
== END 2019-10-06 12:37 | disposition home or self-care (01) ==
LOC: ANHED 07:18 → ANH3MED 07:31
PROVIDERS: Emergency Medicine; Urology; Admitting Provider Family Medicine; Emergency Provider Emergency Medicine; Visit Provider Physician Assistant
PROC: (CPT 52352; principal; 2019-10-04 09:00)
DX: A41.9 Sepsis, unspecified organism (principal); N20.1 Calculus of ureter; N11.1 Chronic obstructive pyelonephritis; N39.0 Urinary tract infection, site not specified; B96.20 Unspecified Escherichia coli [E. coli] as the cause of diseases classified elsewhere; D69.6 Thrombocytopenia, unspecified; I10 Essential (primary) hypertension; K59.00 Constipation, unspecified; R79.89 Other specified abnormal findings of blood chemistry; Z79.899 Other long term (current) drug therapy
CPT/HCPCS: 52352; 52332; 36415; 74018; 74420; 80048; 80053; 81001; 82365; 83605; 83735; 85025; 85055; 85610; 85730; 87040; 87077; 87086; 87088; 87186; 88300; 93005; 96361; 96365; 96367; 96372; 96375; 99285; A9270; C1758; C1769; C2617; G0378; J0131; J0696; J1100; J1885; J1956; J2250; J2270; J2405; J2704; J3010; J7030; J7120; Q9966

== ENCOUNTER 2019-10-12 09:58 | Outpatient (CLI) | payer OTHER, SELFPAY ==
[2019-10-12 10:48] LABS: Alanine Aminotransferase 30 U/L (4-35); Albumin Level 3.9 g/dL (3.5-5.1); Alkaline Phosphatase 119 U/L (38-126); Aspartate Amino Transferase 22 U/L (14-36); Bilirubin,Total 0.4 mg/dL (0.2-1.3); Blood Urea Nitrogen 14 mg/dL (7-17); Calcium 9.1 mg/dL (8.4-10.2); Carbon Dioxide 26 mmol/L (22-30); Chloride 105 mmol/L (98-107); Estimated Glomerular Filt Rate > 60; Glucose 90 mg/dL (65-105); Potassium 3.6 mmol/L (3.4-5.0); Sodium 139 mmol/L (137-145)
== END 2019-10-12 09:59 | disposition home or self-care (01) ==
PROVIDERS: PCP Family Medicine; Visit Provider Physician Assistant
DX: R94.5 Abnormal results of liver function studies (principal)
CPT/HCPCS: 36415; 80053

== ENCOUNTER → 2020-05-22 12:49 | Outpatient (CLI) | payer OTHER, SELFPAY ==
--- NOTE | ~2020-05-22 | XR_ITS ---
XR abdomen/kub 1V 05/22/2020 13:10 INDICATION: Left ureteral stone TECHNIQUE: KUB COMPARISON: 10/04/2019 FINDINGS: Bowel gas pattern is normal. There is no evidence of free air, mass, organomegaly, ascites or obstruction. No abnormal calculi are seen. The bones appear intact. Moderate lumbar spondylosis . IMPRESSION: 1: No acute abdominal abnormality identified. Reviewed, dictated and finalized at location A. HT FOLLOWER
== END ==
PROVIDERS: PCP Family Medicine; Visit Provider Urology
DX: N20.1 Calculus of ureter (principal)
CPT/HCPCS: 74018

== ENCOUNTER → 2020-10-02 17:29 | Outpatient (CLI) | payer OTHER, SELFPAY ==
--- NOTE | ~2020-10-02 | MM_ITS ---
EXAMINATION: MM screening isabel BI w zelalem HISTORY: Screening mammogram TECHNIQUE: Craniocaudal and mediolateral oblique 3-D tomosynthesis images were obtained and synthetic 2-D images were generated. CAD analysis was submitted and interpreted. COMPARISON: , 06/07/2018 bilateral digital screening mammogram examinations right diagnostic digital mammogram and limited right breast ultrasound 03/22/2017 bilateral digital screening mammogram 03/19/2016 diagnostic left digital mammogram and complete left breast ultrasound 03/04/2016 bilateral digital screening mammogram BREAST PARENCHYMAL COMPOSITION: There are scattered areas of fibroglandular density. FINDINGS: Stable fibroglandular asymmetry. There is no evidence of suspicious mass, calcification, or architectural distortion to suggest malignancy in either breast. There has been no suspicious interv al change. IMPRESSION: 1. No mammographic evidence of malignancy. 2. Recommend routine screening mammography in one year. BI-RADS Category 2: Benign finding(s). Reviewed, dictated and finalized at location A.
== END ==
PROVIDERS: Visit Provider Obstetrics & Gynecology
DX: Z12.31 Encounter for screening mammogram for malignant neoplasm of breast (principal)
CPT/HCPCS: 77063; 77067

== ENCOUNTER → 2021-11-24 12:42 | Outpatient (CLI) | payer BC, SELFPAY ==
--- NOTE | ~2021-11-24 | MM_ITS ---
EXAMINATION: MM screening isabel BI w zelalem HISTORY: Screening mammogram TECHNIQUE: Craniocaudal and mediolateral oblique 3-D tomosynthesis images were obtained and synthetic 2-D images were generated. CAD analysis was submitted and interpreted. COMPARISON: 10/02/2020, 08/07/2019, 06/07/2018 bilateral screening mammogram examinations..... BREAST PARENCHYMAL COMPOSITION: There are scattered areas of fibroglandular density. FINDINGS: Stable mild fibroglandular asymmetry. There is no evidence of suspicious mass, calcificatio n, or architectural distortion to suggest malignancy in either breast. There has been no suspicious i nterval change. IMPRESSION: 1. No mammographic evidence of malignancy. 2. Recommend routine screening mammography in one year. BI-RADS Category 2: Benign finding(s). Reviewed, dictated and finalized at location A.
== END ==
PROVIDERS: PCP Family Medicine; Visit Provider Obstetrics & Gynecology
DX: Z12.31 Encounter for screening mammogram for malignant neoplasm of breast (principal)
CPT/HCPCS: 77063; 77067

== ENCOUNTER → 2023-01-20 11:01 | Outpatient (CLI) | payer OTHER, SELFPAY ==
--- NOTE | ~2023-01-20 | MM_ITS ---
EXAMINATION: MM screening isabel BI w zelalem HISTORY: Screening TECHNIQUE: Craniocaudal and mediolateral oblique 3-D tomosynthesis images were obtained and synthetic 2-D images were generated. CAD analysis was submitted and interpreted. COMPARISON: Comparison to multiple prior studies sequentially, with oldest reviewed study dated 03/22/2017. BREAST PARENCHYMAL COMPOSITION: There are scattered areas of fibroglandular density. FINDINGS: There is a new mass in the medial aspect of the left breast, middle depth. The right breast is stable without evidence for malignancy. IMPRESSION: 1. New 4 mm left breast mass, medially. 2. Additional mammographic views and possible breast ultrasound are recommended. BI-RADS Category 0: Incomplete: Needs additional imaging evaluation. Reviewed, dictated and finalized at location A. IMPRESSION: 1. New 4 mm left breast mass, medially. 2. Additional mammographic views and possible breast ultrasound are recommended . BI-RADS Category 0: Incomplete: Needs additional imaging evaluation.
== END ==
PROVIDERS: PCP Family Medicine; Visit Provider Obstetrics & Gynecology
DX: Z12.31 Encounter for screening mammogram for malignant neoplasm of breast (principal); R92.8 Other abnormal and inconclusive findings on diagnostic imaging of breast
CPT/HCPCS: 77063; 77067

== ENCOUNTER → 2023-02-17 08:17 | Outpatient (CLI) | payer OTHER, SELFPAY ==
--- NOTE | ~2023-02-17 | MMUS_ITS ---
EXAMINATION: MM diagnostic isabel LT w zelalem, US breast LT limited HISTORY: New 4 mm left breast mass reported in inner breast on 01/20/2023 screening mammogram TECHNIQUE: Additional 3-D tomosynthesis images of the left breast were performed and synthetic 2-D im ages were generated. CAD analysis was submitted and interpreted. High resolution upper inner quadrant left breast ultrasound was performed. COMPARISON: 01/20/2023 screening mammogram FINDINGS: MAMMOGRAPHIC FINDINGS: A 3.4 x 4.5 mm circumscribed low-density opacity is noted in the upper inner quadrant at mid depth, b enign in appearance mammographically. ULTRASOUND: 10:00 4 cm from nipple: Parallel circumscribed sonolucency measuring 2.7 x 4.6 x 4.4 mm, without inte rnal vascularity, with through transmission and posterior enhancement, consistent with simple cyst IMPRESSION: 1. Benign 4.6 mm simple cyst at 10:00 4 cm from nipple 2. Routine annual mammographic screening is recommended BI-RADS Category 2: Benign finding(s). Reviewed, dictated and finalized at location A. IMPRESSION: 1. Benign 4.6 mm simple cyst at 10:00 4 cm from nipple 2. Routine annual mammographic screening is recommended BI-RADS Category 2: Benign finding(s).
== END ==
PROVIDERS: PCP Family Medicine; Visit Provider Obstetrics & Gynecology
DX: N63.0 Unspecified lump in unspecified breast (principal); N63.20 Unspecified lump in the left breast, unspecified quadrant; N60.02 Solitary cyst of left breast
CPT/HCPCS: 76642; 77061; 77065; G0279

== ENCOUNTER 2024-02-20 11:57 | Outpatient (CLI) | payer MEDICARE, SELFPAY ==
--- NOTE | ~2024-02-20 | DEXA_ITS ---
Bone Density Report Name: YUE OBREGON Age: 63 Sex: Female Ethnicity: White Date of : 1960 Indication: postmenopausal; screening for osteoporosis; height loss; Referring Provider: GERARD STOCK Study: Bone densitometry was performed. Exam Date: February 20, 2024 Accession number: [id number] Bone Density: Region BMD T-score Z-score Classification AP Spine(L1-L4) 1.166 1.1 2.9 Normal Femoral Neck (Left) 0.770 -0.7 0.8 Normal Total Hip (Left) 0.954 0.1 1.4 Normal Femoral Neck (Right) 0.808 -0.4 1.2 Normal Total Hip (Right) 0.937 0.0 1.2 Normal Femoral Neck Mean 0.789 -0.5 1.0 Normal Total Hip Mean 0.946 0.0 1.3 Normal World Health Organization criteria for BMD impression classify patients as: Normal (T-score at or above -1.0), Osteopenia (T-score between -1.0 and -2.5), or Osteoporosis (T-score at or below -2.5). 10-year Fracture Risk: FRAX not reported because: All T-scores for Spine Total, Hip Total, Femoral Neck at or above -1.0 Clinical Information Provided by Patient: Has used the following medications: Vitamin D Patient maximum height was 67.5 Menopause Age: 56 No regular weight bearing exercise Drinks caffeinated beverages Onset of menses at age 11 Number of children 3 Impression: The patient has normal bone mass. Discussion: BONE DENSITY IS ABOVE THE MINIMUM DESIRABLE LEVEL AT ALL SKELETAL SITES TESTED. This patient?s bone mineral density is above the minimum desirable level (T-score -1.0 or better) at all sites measured. The patient should follow a healthful lifestyle (good nutrition with adequate calcium and vitamin D, and appropriate weight-bearing exercise). Follow-Up: Consider repeating this study in 5 years or sooner if there is some new clinical indication. Reported by: TIMOTHY on 02/20/2024 12:32:00 PM. Reviewed, dictated and finalized at location [facility]
--- NOTE | ~2024-02-20 | MM_ITS ---
EXAMINATION: MM screening [facility] BI w zelalem HISTORY: Screening mammogram TECHNIQUE: Craniocaudal and mediolateral oblique 3-D tomosynthesis images were obtained and synthetic 2-D images were generated. CAD analysis was submitted and interpreted. COMPARISON: 01/20/2023, 11/24/2021, 10/02/2020 BREAST PARENCHYMAL COMPOSITION:Not Dense. There are scattered areas of fibroglandular density. FINDINGS: Stable small left breast mass, shown previously to be a simple cyst. No suspicious mass, ca lcification, or architectural distortion are identified in either breast to suggest malignancy. There has been no suspicious interval change. IMPRESSION: No mammographic evidence of malignancy. Recommend routine screening mammography in one year. BI-RADS Category 2: Benign finding(s). Reviewed, dictated and finalized at [facility].
== END 2024-02-20 11:58 | disposition home or self-care (01) ==
LOC: CHSIMG 12:00
PROVIDERS: PCP Family Medicine; Visit Provider Obstetrics & Gynecology
DX: Z12.31 Encounter for screening mammogram for malignant neoplasm of breast (principal); Z78.0 Asymptomatic menopausal state
CPT/HCPCS: 77063; 77067; 77080

== ENCOUNTER 2025-02-07 07:55 | Outpatient (CLI) | payer MEDICARE, SELFPAY ==
--- OUTSIDE RECORDS SUMMARY | 2025-02-07 08:02 | XMS_ITS | Clinical Summary ---
Author Organization [facility] Address [address] [place] [address] Phone Care Team Providers Care Industrial Tech Instructor Name Role Phone Betsy Davila MD Primary Care Provider [phone] Allergies No known active allergies Medications Multiple Vitamin (MULTIVITAMIN PO) Take by mouth daily. Active Active Problems No known active problems Family History Medical History Relation Name Comments High Cholesterol Father Hypertension Father Other-comment Father CARDIAC BYPASS Cancer Mother SKIN Osteoarthritis Mother Relation Name Status Comments Father Alive Mother Alive Social History Tobacco Use Types Packs/Day Years Used Date Smoking Tobacco: Never Smokeless Tobacco: Never Alcohol Use Standard Drinks/Week Comments Yes 0 (1 standard drink = 0.6 oz pur e alcohol) RARELY Comments Unknown Sex and Gender Information Value Date Recorded Sex Assigned at Not on file Legal Sex Female 12:33 PM CDT Gender Identity Not on file Sexual Orientation Not on file Last Filed Vital Signs Vital Sign Reading Time Taken Comments Blood Pressure 130/77 03/28/2023 11:19 AM CDT Pulse 77 03/28/2023 11:19 AM CDT Temperature 36.5 C (97.7 F) 03/28/2023 11:19 AM CDT Respiratory Rate 15 03/28/2023 11:19 AM CDT Oxygen Saturation 97% 03/28/2023 11:19 AM CDT Inhaled Oxygen Concentration - - Weight 77.1 kg (170 lb) 03/18/2023 9:33 AM CDT Height 170.2 cm (5' 7) 03/18/2023 9:33 AM CDT Body Mass Index 26.63 03/18/2023 9:33 AM CDT Plan of Treatment Health Maintenance Due Date Last Done Comments DEXA Bone Density 1960 Hepatitis C Virus (HCV) Screening 1960 Mammogram 1960 Cologuard 2003 Colonoscopy 2003 Colorectal Cancer Screening 2003 Immunochemical Fecal Occult Blood 2003 Pneumococcal Immunization (50+ years) (1 of 1 - PCV) 2008 Zoster Immunization (1 of 2) 2008 SARS-COV-2 Immunization ( - season) 2024 04/19/2022, 12/18/2021, 06/11/2021, Additional history exists Influenza Immunization (#1) 2025 04/22/2022, 0 06/11/2021 Respiratory Syncytial Virus (RSV) Immunization (Adult) (1 - 1-dose 75+ series) 2033 DTaP/Tdap/Td Immunization Discontinued 12/31/2016, 01/1999 TdaP Immunization Completed 12/31/2016 Hepatitis B Immunization Aged Out No longer eligible based on patient's age to complete this topic Human Papillomavirus (HPV) Immunization Aged Out No longer eligible based on patient's age to complete this topic Meningococcal Immunization (ACWY) Aged Out No longer eligible based on patient's age to complete this topic Rotavirus Immunization Aged Out No lo nger eligible based on patient's age to complete this topic Medical Devices Implanted Type Area Transferrer Device Identifier Shelf Expiration Date Model / Serial / Lot Left Lens Implanted:Qty: 1 on 02/28/2023 by Prince Nava MD at [facility] Left: Eye [employer] 09/15/2024 DCB0 0 / DCB00 / [id number] Right Lens Implanted:Qty: 1 on 03/28/2023 by Prince Nava MD at [facility] Right: Eye [employer] 02/06/2025 DIB00 / DIB00 / [id number] Insurance [employer] Care Teams Industrial Tech Instructor Relationship Specialty Start Date End Date Betsy Davila MD [address] [place] [address] PCP - General Family Medicine 02/28/23
[2025-02-07 09:15] LABS: Hematocrit 43.6 % (37.0-47.0); Hemoglobin 13.9 g/dL (12.0-15.0); Mean Corpuscular HGB Conc 31.9 g/dl (32-36); Mean Corpuscular Hemoglobin 28.7 pg (26-34); Mean Corpuscular Volume 90.1 fl (80-100); Platelet Count Result 228 k/mm3 (150-375); Red Blood Count 4.84 M/mm3 (4.2-5.4); White Blood Count 7.9 K/mm3 (4.5-10.0)
== END 2025-02-07 07:56 | disposition home or self-care (01) ==
PROVIDERS: PCP Family Medicine; Visit Provider Obstetrics & Gynecology
DX: N95.0 Postmenopausal bleeding (principal)
CPT/HCPCS: 36415; 85027

== ENCOUNTER 2025-02-14 00:48 | Day surgery (SDC) | payer MEDICARE, SELFPAY ==
[2025-02-05 08:27] VITALS: BMI 28.3
--- NOTE | 2025-02-05 08:43 | PC.NURSE ---
Report to the Outpatient Waiting Room, entrance under the green pavilion located off [facility], at time ___7:30AM__ on date __02/14/25___. Planned Procedure Time: ___9:30AM___.? Time changes happen often and if your time is changed the preop area will call you the afternoon before. - You and your visitor will be asked to self-screen and do not enter if you have any COVID symptoms. Please call surgeon if you need to reschedule. - A mask is optional within the hospital at this time. Patients may have clear liquids (water, carbonated beverages, clear teas, apple juice) until 3 hours prior to surgery (6:30AM) with a maximum of 20 ounces. - No food from midnight until time of surgery and no smoking, or chewing tobacco (or any form of nicotine). No chewing gum, candy or mints. Take only the following medications with a SIP of water on the morning of surgery: ____NONE DO NOT STOP ANY OF YOUR OTHER PRESCRIPTION MEDICATIONS PRIOR TO SURGERY EXCEPT THE FOLLOWING Hold all vitamins and supplements for 3 days per anesthesiologist.-LAST DOSE 02/10/25 Medications to discontinue per physician NONE Date to take last dose Please no make-up, nail pashto, hairspray, perfume, deodorant, or body powder the day of surgery.? No jewelry (including any body piercings) or valuables the day of surgery, leave them at home.? Please take a shower or bath the night before, or the morning of, surgery with an antibacterial soap.? Wear comfortable, loose fitting clothing.? - Jewelry must be removed prior to entering the operating room.? Rings and piercings that are not removed may be cut off. - The hospital will not accept responsibility for valuables.? - Please leave all valuables, including medications, at home the day of surgery. If you are going home after surgery, a licensed racing driver must drive you home.? - NO public transportation without another adult if you receive anesthesia. - We recommend that an adult stay with you for 24 hours following discharge. - We also recommend that you do not drive, make important decision, drink alcoholic beverages, or take any drugs that were not prescribed by your health care provider for at least 24 hours after your discharge time. Follow any additional instructions given to you from your surgeon. Telephone instructions given to ___PATIENT and asked if any additional questions and then verbalized understanding. Patient advised to call surgeon office or pre surgery nurse liaison [phone] if any additional questions.
--- OUTSIDE RECORDS SUMMARY | 2025-02-14 00:50 | XMS_ITS | Clinical Summary ---
Author Organization [facility] Address [address] [place] [address] Phone Care Team Providers Care Sharepoint Analyst Name Role Phone Betsy Davila MD Primary Care Provider [phone] Allergies No known active allergies Medications Multiple [...] this topic Medical Devices Implanted Type Area Emergency Planner Device Identifier Shelf Expiration Date Model / Serial / Lot Left Lens Implanted:Qty: 1 on 02/28/2023 by Prince Nava MD at [facility] Left: Eye [employer] 09/15/2024 DCB0 0 / DCB00 / [id number] Right Lens Implanted:Qty: 1 on 03/28/2023 by Prince Nava MD at [facility] Right: Eye [employer] 02/06/2025 DIB00 / DIB00 / [id number] Insurance [employer] Care Teams Sharepoint Analyst Relationship Specialty Start Date End Date Betsy Davila MD [address] [place] [address] PCP - General Family Medicine 02/28/23
--- NOTE | 2025-02-14 06:04 | WPDHPUPDATE1 ---
History and Physical Update Update Date/Time: 02/14/25 06:04 History and Physical has been reviewed, including an updated exam of the patient. There are NO changes in the patient's condition. Risks, benefits, and alternatives have been discussed and questions answered. Patient agrees to proceed with procedure.
[2025-02-14 06:10] VITALS: BP 143/87; PULSE 73; RESP 18; TEMP 36.3; O2SAT 99
[2025-02-14] MEDS: ACETAMINOPHEN 500 MG TABLET 1000 MG PO (06:25)
[2025-02-14] MEDS: LACTATED RINGERS 1,000 ML 30 ML IV CONT (06:30)
--- NOTE | 2025-02-14 06:52 | WPDANESEPPF ---
Anes - Initial Pre Proc Eval Procedure: Operation Date: 02/14/25 07:30 Proposed Procedures p Hysteroscopy Dilation and Curettage - Maynor Rod MD Date/Time: 02/14/25 06:52 Surgeon: Maynor Rod MD Pre Op Diagnosis: post menopausal bleeding Patient Data Age: 64 Gender: F Height: 1.69 m Weight: 81 kg Allergies Allergy/AdvReac Type Severity Reaction Status Date / Time No Known Allergies Allergy Verified 02/05/25 08:25 Home Medications ?Medication ?Instructions ?Recorded ?Confirmed ?Type rosuvastatin 5 mg tablet 5 mg PO DAILY #30 tabs 12/25/24 02/14/25 Rx cholecalciferol (vitamin D3) 50 50 mcg PO DAILY 01/23/25 02/14/25 History mcg (2,000 unit) capsule Patient hx anesthesia problems: none Family hx anesthesia problems: none Results Review: All pre-operative results and documents have been reviewed as part of the pre-operative evaluation. [facility] Past Medical History Medical History (Updated 01/23/25 @ 10:50 by ALEX Adams) Hyperlipidemia Prediabetes Screening mammogram, encounter for Abnormal Pap smear of cervix 02/03/16 ascus neg hpv Kidney stone HTN (hypertension) Patient denies medical problems Surgical History Surgical History History of appendectomy (~04/2017) History of lithotripsy (09/05/19) History of dilation and curettage (04/21/17) hscope d&c/polypectomy--PMB, endometrial hypertrophy, endometrial polyps benign History of colposcopy with cervical biopsy (01/31/03) benign History of cholecystectomy Family History Family History Father Family history of cardiovascular disease Hypertension Social History Social History Smoking status: Never smoker Second hand tobacco smoke exposure: No Alcohol intake: current Drinks per week: 2 Substance use: never Substance use type: does not use Do You Feel Safe in your Home?: Yes Lack of Transportation: No Lack of Food: Never True Current Housing: I Have Housing Concerned About Future Housing: No Difficulty Paying Gas/Electric Bills: No Difficulty Paying for Meds: No Currently Unemployed: No Education: Bachelor's Degree Difficulty w/ Childcare or Family Care: No Living arrangements: with family Additional living arrangements comments: [place] Occupation/Education: retired Gender identity (if verbalized by the patient): Female Sexual Orientation (if Verbalized by the Patient): Straight or Heterosexual Spiritual care concerns: No Agree to blood products: Yes Anes - Eval Final PreProcedure Day of Procedure 02/14/25 06:52 Patient weight: overweight Heart: regular rate and rhythm Lungs: clear to auscultation Airway: Mallampati scale class II Neurological: alert and oriented Last oral intake: >/= 8 hours ASA classification: II Emergent: no Anesthetic plan: proceed Anesthesia type and monitoring: general GIVS and standard monitoring Results Review: All pre-operative results and documents have been reviewed as part of the pre-operative evaluation. Informed Consent: The patient's anesthetic plan and its attendant risks and benefits were discussed with the patient/family/POA. Questions were solicited and answers provided to the satisfaction of the patient/family/POA.
--- NOTE | 2025-02-14 07:42 | S_PTH ---
PATIENT: Osmel Mullins LOC: [facility] U#:[id number] AGE/SX: 64/F ROOM: RE02/14/[address]: Maynor Rod MD : 1960 BED: DIS: 02/14/2025 SPEC #: [id number] RECD: 02/14/25 10:33 STATUS: AUDREY REQ #: [id number] YVROSE: 02/14/25 07:[address]: Maynor Rod DEPT: [facility] Surgical RECD BY: Daniela John ENTERED: 02/14/25 10:33 SP TYPE: Surgical OTHR DR: Betsy DavilaMD Tissues: A - Endometrial Curettings Procedures: Hematoxylin and Eosin Stain Gross and Microscopic Level 4
[2025-02-14] MEDS: KETOROLAC 30 MG/ML VIAL (*BKC) IV PUSH (07:43)
--- NOTE | 2025-02-14 07:48 | W.PM.PROC2 ---
Procedure Note - Detailed Date of Procedure 02/14/25 Pre-op Diagnosis 1. Post menopausal bleeding Post-op Diagnosis Same (2. endometrial polyp) Procedure Performed 1. Hysteroscopy 2. Polypectomy with uterine curettings Surgeon Maynor Rod MD Anesthesia MAC Findings Endometrial cavity with multiple small polyps Description of Procedure Patient prepped draped usual manner this procedure. Cervix was dilated to allow hysteroscope to be placed. Findings were noted as above. Curettings were then obtained of polyp and all of quadrants of endometrial tissue thorough sample obtained. There was no bleeding and at this point the procedure was considered terminated. Estimated Blood Loss 10 Drains No Packing No Pathology Yes Complications No immediate complications Condition Stable Disposition PACU [facility] Billing Surgery - Charge Forward: Surgery Billing
[2025-02-14 07:53] VITALS: BP 89/47; PULSE 70; RESP 12; O2SAT 94
[2025-02-14 08:20] VITALS: BP 126/67; PULSE 58; RESP 20
[2025-02-14 08:50] VITALS: BP 114/56; PULSE 59; RESP 20
== END 2025-02-14 09:00 | disposition home or self-care (01) ==
PROVIDERS: PCP Family Medicine; Visit Provider Obstetrics & Gynecology
PROC: 0U5B8ZZ Destruction of Endometrium, Via Natural or Artificial Opening Endoscopic (ICD-10-PCS; CPT 58563; principal; 2025-02-14 07:30)
DX: N84.0 Polyp of corpus uteri (principal); E78.5 Hyperlipidemia, unspecified; I10 Essential (primary) hypertension; R73.03 Prediabetes; Z98.890 Other specified postprocedural states; Z90.49 Acquired absence of other specified parts of digestive tract; Z87.442 Personal history of urinary calculi; Z82.49 Family history of ischemic heart disease and other diseases of the circulatory system
CPT/HCPCS: 58558; 88305; A9270; J1885; J2003; J2250; J2405; J2704; J3010; J7120

== ENCOUNTER 2025-04-09 11:55 | Outpatient (CLI) | payer MEDICARE, SELFPAY ==
--- NOTE | ~2025-04-09 | MM_ITS ---
EXAMINATION: MM screening isabel BI w zelalem HISTORY: Screening TECHNIQUE: Craniocaudal and mediolateral oblique 3-D tomosynthesis images were obtained and synthetic 2-D images were generated. CAD analysis was submitted and interpreted. COMPARISON: Comparison to multiple prior studies sequentially, with oldest reviewed study dated , 08/07/2019 BREAST PARENCHYMAL COMPOSITION: There are scattered areas of fibroglandular density. FINDINGS: There is no evidence of suspicious mass, calcification, or architectural distortion to suggest malignancy in either breast. IMPRESSION: 1. No mammographic evidence of malignancy. 2. Recommend routine screening mammography in one year. BI-RADS Category 1: Negative Reviewed, dictated and finalized at location [facility]
--- OUTSIDE RECORDS SUMMARY | 2025-04-09 14:02 | XMS_ITS | Clinical Summary ---
Author Organization [facility] Address [address] [place] [address] Phone Care Team Providers Care Systems Architect Name Role Phone Betsy Davila MD Primary Care Provider [phone] Allergies No known active allergies Medications Multiple [...] 2008 Zoster Immunization (1 of 2) 2008 Influenza Immunization (#1) 2025 04/22/2022, 0 06/11/2021 SARS-COV-2 Immunization ( season) 2025 04/19/2022, 12/18/2021, 06/11/2021, Additional history exists Respiratory Syncytial Virus (RSV) Immunization (Adult) (1 [...] this topic Medical Devices Implanted Type Area Harvest Field Ticketer Device Identifier Shelf Expiration Date Model / Serial / Lot Left Lens Implanted:Qty: 1 on 02/28/2023 by Prince Nava MD at [facility] Left: Eye [employer] 09/15/2024 DCB0 0 / DCB00 / [id number] Right Lens Implanted:Qty: 1 on 03/28/2023 by Prince Nava MD at [facility] Right: Eye [employer] 02/06/2025 DIB00 / DIB00 / [id number] Insurance [employer] Care Teams Systems Architect Relationship Specialty Start Date End Date Betsy Davila MD [address] [place] [address] PCP - General Family Medicine 02/28/23
== END 2025-04-09 11:56 | disposition home or self-care (01) ==
PROVIDERS: PCP Family Medicine; Visit Provider Obstetrics & Gynecology
DX: Z12.31 Encounter for screening mammogram for malignant neoplasm of breast (principal)
CPT/HCPCS: 77063; 77067